=== PATIENT | female | born 1950 | race American Indian/Alaskan Native ===

== ENCOUNTER 2018-11-30 16:31 | Inpatient (IN) | payer MEDICARE ==
[2018-11-30] MEDS ORDERED: CATAPRES PO ONE (17:05)
--- NOTE | 2018-11-30 17:10 | Emergency Department Report ---
HPI - General Chief Complaint: Neck Pain/Injury Time Seen by Provider: 11/30/18 16:54 - HPI HPI: Room 23 The patient is a 68-year-old female presented with a chief complaint of neck shoulder and chest pain. The patient states for the past 2 days she's had intermittent pain in her left neck, left shoulder and left upper extremity as well as substernal chest. Patient states the quality of pain is difficult to describe but today became constant. Patient states she had a slight headache yesterday. Patient denies shortness of breath, nausea/vomiting or diaphoresis. Patient denies cough, recent trauma or fever. The patient states she's been out of her blood pressure medication for the past 3 months. The patient states she's never had a cardiac catheterization Location: [See above] Duration: Since yesterday Quality: Pain Severity: Moderate Modifying factors: [see above] Context: [see above] Mode of transportation: [not driving] ED Past Medical Hx - Past Medical History Previous Medical History?: Yes Hx Hypertension: Yes - Surgical History Past Surgical History?: No - Family History Family history: no significant - Social History Smoking Status: Never Smoker Substance Use Type: None (denies illicit drug use) ED Review of Systems ROS: Stated complaint: NECK/HAND/SHOULDER/PAIN Other details as noted in HPI Constitutional: denies: diaphoresis, fever Eyes: denies: eye pain ENT: denies: throat pain Respiratory: denies: shortness of breath Cardiovascular: chest pain Endocrine: no symptoms reported Gastrointestinal: denies: nausea, vomiting Genitourinary: denies: dysuria Musculoskeletal: myalgia Neurological: headache Physical Exam - Physical Exam Vital Signs: Vital Signs 11/30/18 16:49 Temperature 98.6 F Pulse Rate 69 Respiratory 18 Rate Blood Pressure 229/114 O2 Sat by Pulse 97 Oximetry Physical Exam: GENERAL: The patient is well-developed well-nourished female sitting in chair not appearing to be in acute distress. [] HEENT: Normocephalic. Atraumatic. Extraocular motions are intact. Patient has moist mucous membranes. NECK: Supple. No meningitic signs are noted. Trachea midline CHEST/LUNGS: Clear to auscultation. There is no respiratory distress noted. HEART/CARDIOVASCULAR: Regular. There is no tachycardia. There is no gallop rub or murmur. ABDOMEN: Abdomen is soft, nontender. Patient has normal bowel sounds. There is no abdominal distention. SKIN: There is no rash. There is no edema. There is no diaphoresis. NEURO: The patient is awake, alert, and oriented. The patient is cooperative. The patient has no focal neurologic deficits. The patient has normal speech. Cranial nerves II through XII grossly intact, no drift MUSCULOSKELETAL: There is no evidence of acute injury. ED Course Vital Signs 11/30/18 16:49 Temperature 98.6 F Pulse Rate 69 Respiratory 18 Rate Blood Pressure 229/114 O2 Sat by Pulse 97 Oximetry ED Medical Decision Making - Lab Data Result diagrams: 11/30/18 17:24 11/30/18 17:24 - EKG Data -: EKG Interpreted by Me EKG shows normal: sinus rhythm Rate: normal - EKG Data When compared to previous EKG there are: previous EKG unavailable Interpretation: other (no ischemic changes seen) - Radiology Data Radiology results: report reviewed (CT head), image reviewed (CT head, chest x- ray) interpreted by me: Chest x-ray-no focal infiltrates, [place] [address] Cat Scan Report Signed Patient: RAFA GUZMAN MR#: [id number] : 1950 Acct:[id number] Age/Sex: 68 / F ADM Date: 11/30/18 Loc: ED Attending Dr: Ordering Physician: ANAMIKA MURRAY MD Date of Service: 11/30/18 Procedure(s): CT head/brain wo con Accession Number(s): [id number] cc: ANAMIKA MURRAY MD FINAL REPORT EXAM: CT HEAD/BRAIN WO CON HISTORY: hypertension, headache TECHNIQUE: CT examination of the head without IV contrast PRIORS: None. FINDINGS: Polyp or retention cyst mid left ethmoid sinus. No acute air-fluid level visualized in the included air-filled sinuses. Bone windows demonstrate no acute fracture. There is ventricular and sulcal prominence compatible with global cerebrocortical atrophy. The brain contains no mass, mass effect, hemorrhage, or acute infarct. There is no extra-axial intracranial bleed, brain bleed, or midline shift. IMPRESSION: No acute CVA, intracranial bleed, or brain mass Polyp or retention cyst mid left ethmoid sinus Transcribed By: VIJAYA Dictated By: EBONY TOBAR MD Electronically Authenticated By: EBONY TOBAR MD Signed Date/Time: 11/30/181801 DD/ 00 TD/TT: 11/30/181800 - Differential Diagnosis hypertensive urgency, ICH, ACS, PE Critical care attestation.: If time is entered above; I have spent that time in minutes in the direct care of this critically ill patient, excluding procedure time. ED Disposition Clinical Impression: Hypertensive urgency, Chest pain Disposition: OP ADMIT IP TO THIS HOSP Is pt being admited?: Yes Does the pt Need Aspirin: Yes Condition: Fair Instructions: Chest Pain (ED) Time of Disposition: 18:42 (hospitalist paged (Dr Bernstein))
[2018-11-30 17:35] LABS: Hematocrit 46.2 % (30.3-42.9); Hemoglobin 14.9 gm/dl (10.1-14.3); Mean Corpuscular HGB Conc 32 % (30-34); Mean Corpuscular Volume 87 fl (79-97); Platelet Count 177 K/mm3 (140-440); Red Blood Count 5.32 M/mm3 (3.65-5.03)
[2018-11-30 17:52] LABS: Creatine Kinase MB 2.5 ng/mL (0.0-4.0)
[2018-11-30 17:54] LABS: BUN/Creatinine Ratio 14; Blood Urea Nitrogen 11 mg/dL (7-17); Calcium 9.4 mg/dL (8.4-10.2); Hemolysis Index 11
--- NOTE | 2018-11-30 18:02 | Cat Scan Report ---
FINAL REPORT EXAM: CT HEAD/BRAIN WO CON HISTORY: hypertension, headache TECHNIQUE: CT examination of the head without IV contrast PRIORS: None. FINDINGS: Polyp or retention cyst mid left ethmoid sinus. No acute air-fluid level visualized in the included air-filled sinuses. Bone windows demonstrate no acute fracture. There is ventricular and sulcal prominence compatible with global cerebrocortical atrophy. The brain contains no mass, mass effect, hemorrhage, or acute infarct. There is no extra-axial intracranial bleed, brain bleed, or midline shift. IMPRESSION: No acute CVA, intracranial bleed, or brain mass Polyp or retention cyst mid left ethmoid sinus
[2018-11-30] MEDS ORDERED: ASPIRIN PO ONE (18:43)
[2018-11-30] MEDS ORDERED: ZOFRAN IV ONE (19:01)
[2018-11-30] MEDS ORDERED: SUBLIMAZE IV ONE (19:01)
--- NOTE | 2018-11-30 19:21 | XRay Report ---
FINAL REPORT EXAM: XR CHEST 1V AP HISTORY: chest pain TECHNIQUE: Frontal portable view of the chest Comparison: None FINDINGS: There is no evidence of infiltrate, pneumothorax or pleural fluid collection. The cardiac silhouette is normal size. The thoracic aorta is tortuous. The bony structures are unremarkable. Visualization detail of the thoracic spine is limited. IMPRESSION: 1. No evidence of an acute pulmonary process.
[2018-11-30 19:26] LABS: Bilirubin,Urine NEG (Negative); Blood,Urine NEG (Negative); Color,Urine Straw (Yellow); Protein,Urine <15 mg/dL mg/dL (Negative); Urobilinogen,Urine < 2.0 mg/dL (<2.0); WBC,Urine < 1.0 /HPF (0.0-6.0)
[2018-11-30 21:27] LABS: Basophils % (Manual) 0 % (0.0-1.8); Eosinophils % (Manual) 0 % (0.0-4.3); Total Cells Counted 100
[2018-11-30 21:28] LABS: Anisocytosis 1+; Platelet Estimate Consistent w Auto
[2018-11-30] MEDS ORDERED: ZOFRAN IV PRN (22:32)
[2018-11-30] MEDS ORDERED: SODIUM CHLORIDE FLUSH SYRINGE 10 ML IV PRN (22:32)
--- NOTE | 2018-11-30 22:35 | History and Physical Report ---
History of Present Illness Date of examination: 11/30/18 Date of admission: 11/30/18 18:43 History of present illness: 68-year-old woman with a history of hypertension,diabetes, ncompliant with medications comes emergency room with complaints of chest pain that started 1 week ago.Pain is in the left jaw radiating to the left upper extremity, and left posterior shoulder which she describes a dull pain intermittent every hour, intensity 5/10, relief with pain medication given in the ER. Denies breath, nausea, diaphoresis or palpitation. Has not taken any antihypertensive in the last 3 months Review of systems Constitutional: no weight loss, chills, fever Ears, eyes, nose, mouth and throat: no nasal congestion, no nasal discharge, no sinus pressure, no vision change, no red eye. Neck: No neck pain or rigidity. Cardiovascular: no palpitations Respiratory: no cough, shortness of breath Gastrointestinal: no abdominal pain hematochezia Genitourinary : no frequency , no hematuria Musculoskeletal: no joint swelling or muscle ache Integumentary: no rash, no pruritis Neurological: no parathesias, no numbness, no focal weakness Endocrine: no cold or heat intolerance, no polyuria or polydipsia Hematologic/Lymphatic: no easy bruising, no easy bleeding, no gland swelling Allergic/Immunologic: no urticaria, no angioedema. PAST MEDICAL HISTORY: hypertension PAST SURGICAL HISTORY: None SOCIAL HISTORY: Denies alcohol, tobacco, drugs FAMILY HISTORY: Hypertension Medications and Allergies Allergies Allergy/AdvReac Type Severity Reaction Status Date / Time No Known Allergies Allergy Unverified 11/30/18 16:51 Home Medications Medication Instructions Recorded Confirmed Last Taken Type Lisinopril/Hydrochlorothiazide 1 tab PO DAILY 11/30/18 11/30/18 Unknown History Metformin HCl 1 gm PO BID 11/30/18 11/30/18 Unknown History Exam - Physical Exam Narrative exam: General Apperance: The patient lying in bed, breathing comfortable HEENT: Normocephalic, atraumatic. Pupils equally round and reactive to light, EOMI, no sclericterus or JVD or thyromegaly or nodule. , no carotid bruit, mucous membranes moist, no exudate or erythema Heart: S1-S2, regular is rhythm Lungs: Clear to auscultation bilaterally, breathing comfortable Abdomen: Positive bowel sounds, soft, nontender, nondistended, no organomegaly Extremities: No edema cyanosis clubbing Skin: no rash, nodule, warm and dry Neuro: cranial nerves 2-12 intact, speech is fluent, motor/sensory intact - Constitutional Vitals: Temp Pulse Resp BP Pulse Ox 98.3 F 57 L 18 141/75 100 11/30/18 17:10 11/30/18 19:15 11/30/18 19:16 11/30/18 19:15 11/30/18 19:16 Results - Labs CBC & Chem 7: 11/30/18 17:24 11/30/18 17:24 Labs: Abnormal lab results 11/30/18 11/30/18 11/30/18 Range/Units 17:24 17:24 17:24 RBC 5.32 H (3.65-5.03) M/mm3 Hgb 14.9 H (10.1-14.3) gm/dl Hct 46.2 H (30.3-42.9) % Lymphocytes % (Manual) 42.0 H (13.4-35.0) % D-Dimer 248.59 H (0-234) ng/mlDDU Carbon Dioxide 31 H (22-30) mmol/L Glucose 112 H (65-100) mg/dL Total Creatine Kinase 180 H (30-135) units/L Urine pH (5.0-7.0) 11/30/18 Range/Units 19:00 RBC (3.65-5.03) M/mm3 Hgb (10.1-14.3) gm/dl Hct (30.3-42.9) % Lymphocytes % (Manual) (13.4-35.0) % D-Dimer (0-234) ng/mlDDU Carbon Dioxide (22-30) mmol/L Glucose (65-100) mg/dL Total Creatine Kinase (30-135) units/L Urine pH 8.0 H (5.0-7.0) - Imaging and Cardiology EKG: image reviewed Chest x-ray: report reviewed CT Scan - head: report reviewed Assessment and Plan Assessment Hypertensive urgency, malignant Chest pain most likely secondary to #1 Diabetes Plan Check cardiac enzymes, stress test Start aspirin, IV hydralazine Check CT chest, elevated d-dimer Restart her outpatient medications Check fingersticks and initiate insulin sliding scale DVT prophylaxis
[2018-11-30] MEDS ORDERED: NACL 0.45% 1000 ML 1,000 ML IV SCH (23:00)
[2018-11-30] MEDS ORDERED: APRESOLINE IV PRN (23:56)
[2018-11-30] MEDS ORDERED: D50W (25GM) Syringe IV PRN (23:57)
[2018-12-01] MEDS: MORPHINE IV PRN ×3 (01:38→22:37)
--- NOTE | 2018-12-01 03:05 | Cat Scan Report ---
FINAL REPORT EXAM: CT ANGIO CHEST HISTORY: pe protocol TECHNIQUE: A CT angiogram was performed following the intravenous injection of 100 cc of Omnipaque 3 50. Rotational, sagittal, and coronal MIP reconstructions were reviewed. FINDINGS: There is no evidence of pulmonary embolus or aortic dissection. The thoracic aorta is normal in confi guration. The heart size is normal. Pericardial fluid is not seen. There is no evidence of adenopathy . The lungs are negative for infiltrates or effusions. There is minimal atelectatic changes in the ri ght lower lobe. In the upper abdomen the adrenal glands appear normal. At the thoracic inlet the thyr oid gland appears normal. The skeletal structures are well-maintained. IMPRESSION: No evidence of pulmonary embolus, aortic dissection, or vascular congestion. Minimal atelectatic changes in the right lower lobe. No acute infiltrates or effusions.
[2018-12-01 06:24] LABS: Basophils % (Auto) 0.7 % (0.0-1.8); Eosinophils % (Auto) 0.6 % (0.0-4.3); Hemoglobin 13.2 gm/dl (10.1-14.3); Lymphocytes # (Auto) 1.7 K/mm3 (1.2-5.4); Lymphocytes % (Auto) 36.4 % (13.4-35.0); Mean Corpuscular HGB Conc 32 % (30-34); Mean Corpuscular Volume 88 fl (79-97); Monocytes # (Auto) 0.3 K/mm3 (0.0-0.8); Monocytes % (Auto) 6.4 % (0.0-7.3); Platelet Count 149 K/mm3 (140-440); Red Blood Count 4.79 M/mm3 (3.65-5.03); Red Cell Distribution Width 15.4 % (13.2-15.2)
[2018-12-01 06:42] LABS: BUN/Creatinine Ratio 15; Blood Urea Nitrogen 12 mg/dL (7-17); Calcium 8.9 mg/dL (8.4-10.2); Hemolysis Index 24
[2018-12-01 07:26] LABS: Creatine Kinase MB 1.7 ng/mL (0.0-4.0)
[2018-12-01] MEDS: HumaLOG SUB-Q SCH ×4 (08:18→22:31)
[2018-12-01] MEDS: TYLENOL PO PRN (09:44)
[2018-12-01] MEDS ORDERED: HYDROCHLOROTHIAZIDE PO SCH (10:00)
[2018-12-01] MEDS ORDERED: LISINOPRIL PO SCH (10:00)
[2018-12-01] MEDS ORDERED: LEXISCAN IV ONE ×2 (10:25→10:27)
[2018-12-01] MEDS ORDERED: PNEUMOVAX 23 IM ONE (12:00)
[2018-12-01] MEDS ORDERED: AFLURIA QUAD 2018-2019 SYRINGE IM ONE (12:00)
[2018-12-01] MEDS ORDERED: HCTZ PO SCH ×2 (14:00→15:13)
[2018-12-01] MEDS: BABY ASPIRIN PO SCH (14:15)
[2018-12-01] MEDS: SODIUM CHLORIDE FLUSH SYRINGE 10 ML IV SCH ×2 (14:15→22:32)
[2018-12-01] MEDS ORDERED: ZESTRIL PO SCH ×2 (15:00→15:13)
--- NOTE | 2018-12-01 15:11 | Progress Note ---
Assessment and Plan Assessment and plan: 68-year-old woman with a history of hypertension,diabetes, ncompliant with medications comes emergency room with complaints of chest pain that started 1 week ago.Pain is in the left jaw radiating to the left upper extremity, and left posterior shoulder PAST MEDICAL HISTORY: hypertension Hospital course/plan all AV chayo blockers have been discontinued. Blood pressure medications are being optimized. sp stress test Diagnosis Hypertensive urgency Chest pain, most likely due to hypertensive urgency Bradycardia dvt ppx- lovenox History Interval history: Review of systems Constitutional: No fevers, no malaise, no joint pains CVS: No chest pain, no orthopnea, no dyspnea on exertion, no pedal edema GI: No abdominal pain, no diarrhea, no vomiting, no constipation Respiratory: No shortness of breath, no wheezing, no coughing Hospitalist Physical - Physical exam Narrative exam: General.: Appears well, no distress, nontoxic HEENT: Moist mucous membranes, extraocular muscles intact, no lymphadenopathy Neck: supple Cardiac: S1-S2 heard Lungs: clear to auscultation bilaterally Abdomen: soft , nontender, nondistended, bowel sounds positive Extremities: no edema clubbing or cyanosis Skin: no rash or lesions Neurologic: no gross focal deficits Psych: calm, and cooperative - Constitutional Vitals: Temp Pulse Resp BP Pulse Ox 97.4 F L 57 L 18 182/78 95 12/01/18 12:28 12/01/18 12:28 12/01/18 12:28 12/01/18 12:28 12/01/18 11:52 Results - Labs CBC & Chem 7: 12/01/18 05:51 12/01/18 05:51 Labs: Laboratory Last Values WBC 4.7 K/mm3 (4.5-11.0) 12/01/18 05:51 RBC 4.79 M/mm3 (3.65-5.03) 12/01/18 05:51 Hgb 13.2 gm/dl (10.1-14.3) 12/01/18 05:51 Hct 42.0 % (30.3-42.9) 12/01/18 05:51 MCV 88 fl (79-97) 12/01/18 05:51 MCH 28 pg (28-32) 12/01/18 05:51 MCHC 32 % (30-34) 12/01/18 05:51 RDW 15.4 % (13.2-15.2) H 12/01/18 05:51 Plt Count 149 K/mm3 (140-440) 12/01/18 05:51 Lymph % (Auto) 36.4 % (13.4-35.0) H 12/01/18 05:51 Morgan % (Auto) 6.4 % (0.0-7.3) 12/01/18 05:51 Eos % (Auto) 0.6 % (0.0-4.3) 12/01/18 05:51 Baso % (Auto) 0.7 % (0.0-1.8) 12/01/18 05:51 Lymph # 1.7 K/mm3 (1.2-5.4) 12/01/18 05:51 Morgan # 0.3 K/mm3 (0.0-0.8) 12/01/18 05:51 Eos # 0.0 K/mm3 (0.0-0.4) 12/01/18 05:51 Baso # 0.0 K/mm3 (0.0-0.1) 12/01/18 05:51 Add Manual Diff Complete 11/30/18 17:24 Total Counted 100 11/30/18 17:24 Seg Neutrophils % 55.9 % (40.0-70.0) 12/01/18 05:51 Seg Neuts % (Manual) 52.0 % (40.0-70.0) 11/30/18 17:24 Band Neutrophils % 0 % 11/30/18 17:24 Lymphocytes % (Manual) 42.0 % (13.4-35.0) H 11/30/18 17:24 Reactive Lymphs % (Man) 0 % 11/30/18 17:24 Monocytes % (Manual) 6.0 % (0.0-7.3) 11/30/18 17:24 Eosinophils % (Manual) 0 % (0.0-4.3) 11/30/18 17:24 Basophils % (Manual) 0 % (0.0-1.8) 11/30/18 17:24 Metamyelocytes % 0 % 11/30/18 17:24 Myelocytes % 0 % 11/30/18 17:24 Promyelocytes % 0 % 11/30/18 17:24 Blast Cells % 0 % 11/30/18 17:24 Nucleated RBC % Not Reportable 11/30/18 17:24 Seg Neutrophils # 2.6 K/mm3 (1.8-7.7) 12/01/18 05:51 Seg Neutrophils # Man 2.5 K/mm3 (1.8-7.7) 11/30/18 17:24 Band Neutrophils # 0.0 K/mm3 11/30/18 17:24 Lymphocytes # (Manual) 2.0 K/mm3 (1.2-5.4) 11/30/18 17:24 Abs React Lymphs (Man) 0.0 K/mm3 11/30/18 17:24 Monocytes # (Manual) 0.3 K/mm3 (0.0-0.8) 11/30/18 17:24 Eosinophils # (Manual) 0.0 K/mm3 (0.0-0.4) 11/30/18 17:24 Basophils # (Manual) 0.0 K/mm3 (0.0-0.1) 11/30/18 17:24 Metamyelocytes # 0.0 K/mm3 11/30/18 17:24 Myelocytes # 0.0 K/mm3 11/30/18 17:24 Promyelocytes # 0.0 K/mm3 11/30/18 17:24 Blast Cells # 0.0 K/mm3 11/30/18 17:24 WBC Morphology Not Reportable 11/30/18 17:24 Hypersegmented Neuts Not Reportable 11/30/18 17:24 Hyposegmented Neuts Not Reportable 11/30/18 17:24 Hypogranular Neuts Not Reportable 11/30/18 17:24 Smudge Cells Not Reportable 11/30/18 17:24 Toxic Granulation Not Reportable 11/30/18 17:24 Toxic Vacuolation Not Reportable 11/30/18 17:24 Dohle Bodies Not Reportable 11/30/18 17:24 Pelger-Huet Anomaly Not Reportable 11/30/18 17:24 Radha Rods Not Reportable 11/30/18 17:24 Platelet Estimate Consistent w auto 11/30/18 17:24 Clumped Platelets Not Reportable 11/30/18 17:24 Plt Clumps, EDTA Not Reportable 11/30/18 17:24 Large Platelets Not Reportable 11/30/18 17:24 Giant Platelets Not Reportable 11/30/18 17:24 Platelet Satelliting Not Reportable 11/30/18 17:24 Plt Morphology Comment Not Reportable 11/30/18 17:24 RBC Morphology Not Reportable 11/30/18 17:24 Dimorphic RBCs Not Reportable 11/30/18 17:24 Polychromasia Not Reportable 11/30/18 17:24 Hypochromasia Not Reportable 11/30/18 17:24 Poikilocytosis Not Reportable 11/30/18 17:24 Anisocytosis 1+ 11/30/18 17:24 Microcytosis Not Reportable 11/30/18 17:24 Macrocytosis Not Reportable 11/30/18 17:24 Spherocytes Not Reportable 11/30/18 17:24 Pappenheimer Bodies Not Reportable 11/30/18 17:24 Sickle Cells Not Reportable 11/30/18 17:24 Target Cells Not Reportable 11/30/18 17:24 Tear Drop Cells Not Reportable 11/30/18 17:24 Ovalocytes Not Reportable 11/30/18 17:24 Helmet Cells Not Reportable 11/30/18 17:24 Rey-Truro Bodies Not Reportable 11/30/18 17:24 Kelly Rings Not Reportable 11/30/18 17:24 Angela Cells Not Reportable 11/30/18 17:24 Bite Cells Not Reportable 11/30/18 17:24 Crenated Cell Not Reportable 11/30/18 17:24 Elliptocytes Not Reportable 11/30/18 17:24 Acanthocytes (Spur) Not Reportable 11/30/18 17:24 Rouleaux Not Reportable 11/30/18 17:24 Hemoglobin C Crystals Not Reportable 11/30/18 17:24 Schistocytes Not Reportable 11/30/18 17:24 Malaria parasites Not Reportable 11/30/18 17:24 Javier Bodies Not Reportable 11/30/18 17:24 Hem Pathologist Commnt No 11/30/18 17:24 D-Dimer 248.59 ng/mlDDU (0-234) H 11/30/18 17:24 Sodium 142 mmol/L (137-145) 12/01/18 05:51 Potassium 4.7 mmol/L (3.6-5.0) 12/01/18 05:51 Chloride 104.4 mmol/L (98-107) 12/01/18 05:51 Carbon Dioxide 25 mmol/L (22-30) 12/01/18 05:51 Anion Gap 17 mmol/L 12/01/18 05:51 BUN 12 mg/dL (7-17) 12/01/18 05:51 Creatinine 0.8 mg/dL (0.7-1.2) 12/01/18 05:51 Estimated GFR > 60 ml/min 12/01/18 05:51 BUN/Creatinine Ratio 15 % 12/01/18 05:51 Glucose 101 mg/dL (65-100) H 12/01/18 05:51 POC Glucose 98 (70-105) 12/01/18 06:28 Calcium 8.9 mg/dL (8.4-10.2) 12/01/18 05:51 Total Creatine Kinase 124 units/L (30-135) 12/01/18 05:51 CK-MB (CK-2) 1.7 ng/mL (0.0-4.0) 12/01/18 05:51 CK-MB (CK-2) Rel Index 1.3 (0-4) 12/01/18 05:51 Troponin T < 0.010 ng/mL (0.00-0.029) 12/01/18 05:51 Urine Color Straw (Yellow) 11/30/18 19:00 Urine Turbidity Clear (Clear) 11/30/18 19:00 Urine pH 8.0 (5.0-7.0) H 11/30/18 19:00 Ur Specific [place] 1.008 (1.003-1.030) 11/30/18 19:00 Urine Protein <15 mg/dl mg/dL (Negative) 11/30/18 19:00 Urine Glucose (UA) Neg mg/dL (Negative) 11/30/18 19:00 Urine Ketones Neg mg/dL (Negative) 11/30/18 19:00 Urine Blood Neg (Negative) 11/30/18 19:00 Urine Nitrite Neg (Negative) 11/30/18 19:00 Urine Bilirubin Neg (Negative) 11/30/18 19:00 Urine Urobilinogen < 2.0 mg/dL (<2.0) 11/30/18 19:00 Ur Leukocyte Esterase Neg (Negative) 11/30/18 19:00 Urine WBC (Auto) < 1.0 /HPF (0.0-6.0) 11/30/18 19:00 Urine RBC (Auto) 1.0 /HPF (0.0-6.0) 11/30/18 19:00 U Epithel Cells (Auto) 1.0 /HPF (0-13.0) 11/30/18 19:00
[2018-12-01] MEDS: PROCARDIA XL PO SCH (15:43)
[2018-12-01] MEDS ORDERED: LOVENOX SUB-Q SCH (22:00)
--- NOTE | 2018-12-01 23:20 | Treadmill Report ---
THALLIUM STRESS TEST REPORT LEFT VENTRICLE: Left ventricular chamber size is within normal spread. Perfusion study demonstrates homogeneous uptake of the tracer in all segments, no significant perfusion defects identified. Gated analysis is not available. CONCLUSION: Normal myocardial perfusion study. JOB# [id number] CA/NTS
[2018-12-02] MEDS: MORPHINE IV PRN (05:53)
[2018-12-02] MEDS: TYLENOL PO PRN (10:55)
[2018-12-02] MEDS: BABY ASPIRIN PO SCH (10:56)
[2018-12-02] MEDS: HumaLOG SUB-Q SCH ×2 (10:58→12:42)
[2018-12-02] MEDS: PROCARDIA XL PO SCH (10:58)
[2018-12-02] MEDS: SODIUM CHLORIDE FLUSH SYRINGE 10 ML IV SCH (11:00)
--- NOTE | 2018-12-02 14:02 | Discharge Summary ---
Providers - Providers Date of Admission: 11/30/18 18:43 Attending physician: LIZZ MAYERS MD Primary care physician: KATIUSKA PATTEN Hospitalization Condition: Fair Hospital course: 68-year-old woman who presents with chest pain. ACS was ruled out. She went on to have a stress test that was negative. She had very elevated blood pressure. She stated that she had been on some blood pressure medications, but was hoping that it'll go away with her being less stress. She was counseled on blood pressure medication compliance, she is advised to see her doctor for blood pressure check within 2 weeks of discharge. She was noted to be bradycardic, therefore all AV chayo blockage agents were discontinued. Her blood pressure medications were optimized and she was subsequently discharged. She complained of neck pain radiating down her left arm consistent with cervical radiculopathy, therefore she was given Medrol Dosepak Diagnoses Hypertensive urgency Chest pain due to hypertensive urgency Bradycardia cervical radiculopathy Disposition: TO HOME OR SELFCARE Time spent for discharge: 33 mins Core Measure Documentation - Palliative Care Palliative Care/ Comfort Measures: Not Applicable - Core Measures Any of the following diagnoses?: none Exam - Constitutional Vitals: Temp Pulse Resp BP Pulse Ox 98.0 F 64 20 168/69 97 12/02/18 08:34 12/02/18 08:34 12/02/18 08:34 12/02/18 08:34 12/02/18 10:00 General appearance: Present: no acute distress, well-nourished - EENT Eyes: Present: PERRL ENT: hearing intact, clear oral mucosa - Neck Neck: Present: supple, normal ROM - Respiratory Respiratory effort: normal Respiratory: bilateral: CTA - Cardiovascular Heart Sounds: Present: S1 & S2. Absent: rub, click - Extremities Extremities: pulses symmetrical, No edema Peripheral Pulses: within normal limits - Abdominal General gastrointestinal: Present: soft, non-tender, non-distended, normal bowel sounds Female genitourinary: Present: normal - Integumentary Integumentary: Present: clear, warm, dry - Musculoskeletal Musculoskeletal: gait normal, strength equal bilaterally - Psychiatric Psychiatric: appropriate mood/affect, intact judgment & insight - Neurologic Neurologic: CNII-XII intact, moves all extremities Plan Follow up with: KATIUSKA PATTEN MD [Primary Care Provider] - 7 Days Forms: Work/School Release Form Prescriptions: hydroCHLOROthiazide [HCTZ] 25 mg PO QDAY #30 tablet RX: Lisinopril [Zestril TAB] 40 mg PO QDAY #30 tablet Metformin HCl 1 gm PO BID #60 methylPREDNISolone [Medrol] 4 mg PO DAILY #1 tab.ds.pk RX: NIFEdipine XL [Procardia Xl] 60 mg PO Q12HR #60 tab
[2018-12-04 11:32] VITALS: BP 168/69
== END 2018-12-02 15:54 | disposition home or self-care (01) | DRG 305 ==
LOC: ED 16:31 → 4A 18:43
PROVIDERS: ADMIT Internal Medicine; ATTEND Internal Medicine
PROC: 3E0234Z Introduction of Serum, Toxoid and Vaccine into Muscle, Percutaneous Approach (ICD-10-PCS; principal; 2018-12-01)
DX: I16.0 Hypertensive urgency (principal); R00.1 Bradycardia, unspecified; E11.9 Type 2 diabetes mellitus without complications; M54.12 Radiculopathy, cervical region; Z91.14 Patient's other noncompliance with medication regimen; Z82.49 Family history of ischemic heart disease and other diseases of the circulatory system; Z79.84 Long term (current) use of oral hypoglycemic drugs; Z23 Encounter for immunization
CPT/HCPCS: 36415; 70450; 71045; 71275; 78452; 80048; 81001; 82550; 82553; 82962; 84484; 85007; 85025; 85379; 90686; 90732; 93005; 93010; 93017; 96374; 96375; G0378; A9502; J1650; J2270; J2405; J2785; J3010; J7030; Q9967

== ENCOUNTER 2019-06-14 16:27 | Emergency (ER) | payer MEDICARE, OTHER ==
--- NOTE | 2019-06-14 16:52 | Event Note ---
ED Screening Note Date of service: 06/14/19 Time: 16:49 ED Screening Note: Patient reports abdominal pain since yesterday. PMH DM2, HTN Patient states she was off medication for 3 months and just restarted medication 1 week ago. This initial assessment/diagnostic orders/clinical plan/treatment(s) is/are subject to change based on patients health status, clinical progression and re- assessment by fellow clinical providers in the ED. Further treatment and workup at subsequent clinical providers discretion. Patient/guardian urged not to elope from the ED as their condition may be serious if not clinically assessed and managed. Initial orders include: Labs
[2019-06-14 17:25] LABS: Basophils % (Auto) 0.3 % (0.0-1.8); Eosinophils % (Auto) 0.3 % (0.0-4.3); Hematocrit 44.5 % (30.3-42.9); Hemoglobin 14.4 gm/dl (10.1-14.3); Lymphocytes # (Auto) 1.2 K/mm3 (1.2-5.4); Lymphocytes % (Auto) 18.1 % (13.4-35.0); Mean Corpuscular HGB Conc 32 % (30-34); Mean Corpuscular Volume 87 fl (79-97); Monocytes # (Auto) 0.3 K/mm3 (0.0-0.8); Platelet Count 171 K/mm3 (140-440); Red Blood Count 5.12 M/mm3 (3.65-5.03); Red Cell Distribution Width 15.3 % (13.2-15.2)
[2019-06-14 17:38] LABS: Bilirubin,Urine NEG (Negative); Blood,Urine NEG (Negative); Color,Urine Yellow (Yellow); Mucus,Urine 1+ /HPF
[2019-06-14 17:48] LABS: Alanine Aminotransferase 30 units/L (7-56); Albumin 4.5 g/dL (3.9-5); BUN/Creatinine Ratio 19; Blood Urea Nitrogen 17 mg/dL (7-17); Calcium 9.8 mg/dL (8.4-10.2); Hemolysis Index 17
--- NOTE | 2019-06-14 20:16 | Emergency Department Report ---
ED General Adult HPI - General Chief complaint: Abdominal Pain Stated complaint: HURTING ALL OVER Time Seen by Provider: 06/14/19 16:49 Source: patient Mode of arrival: Ambulatory Limitations: No Limitations - History of Present Illness Initial comments: This is a 69-year-old female well with a history of diabetes and hypertension on medication who presents to ED complaining of some abdominal discomfort that started today after she E some food. Patient states that discomfort is in her upper mid abdomen. Patient states that it feels like she is bloated and has a lot of gas. She denies abdominal pain and says is more of a discomfort than pain. Patient states she just started taking her blood pressure medication and diabetes as she has been off of it for the past 2 months due to insurance issues. Patient states now she is taking and follows up with her primary care doctor Almaz Thornton. She denies nausea vomiting and diarrhea - Related Data Previous Rx's Medication Instructions Recorded Last Taken Type Lisinopril [Zestril TAB] 40 mg PO QDAY #30 tablet 12/02/18 Unknown Rx Metformin HCl 1 gm PO BID #60 12/02/18 Unknown Rx NIFEdipine XL [Procardia Xl] 60 mg PO Q12HR #60 tab 12/02/18 Unknown Rx hydroCHLOROthiazide [HCTZ] 25 mg PO QDAY #30 tablet 12/02/18 Unknown Rx methylPREDNISolone [Medrol] 4 mg PO DAILY #1 tab.ds.pk 12/02/18 Unknown Rx Famotidine [Pepcid] 20 mg PO BID #30 tablet 06/14/19 Unknown Rx Allergies Allergy/AdvReac Type Severity Reaction Status Date / Time No Known Allergies Allergy Unverified 11/30/18 16:51 ED Review of Systems ROS: Stated complaint: HURTING ALL OVER Other details as noted in HPI Comment: All other systems reviewed and negative ED Past Medical Hx - Past Medical History Hx Hypertension: Yes Hx Congestive Heart Failure: No Hx Diabetes: Yes Hx of Cancer: No Hx Asthma: No Hx COPD: No - Social History Smoking Status: Never Smoker Substance Use Type: None - Medications Home Medications: Home Medications Medication Instructions Recorded Confirmed Last Taken Type Lisinopril [Zestril TAB] 40 mg PO QDAY #30 tablet 12/02/18 Unknown Rx Metformin HCl 1 gm PO BID #60 12/02/18 Unknown Rx NIFEdipine XL [Procardia Xl] 60 mg PO Q12HR #60 tab 12/02/18 Unknown Rx hydroCHLOROthiazide [HCTZ] 25 mg PO QDAY #30 tablet 12/02/18 Unknown Rx methylPREDNISolone [Medrol] 4 mg PO DAILY #1 tab.ds.pk 12/02/18 Unknown Rx Famotidine [Pepcid] 20 mg PO BID #30 tablet 06/14/19 Unknown Rx ED Physical Exam - General Limitations: No Limitations General appearance: alert, in no apparent distress - Head Head exam: Present: atraumatic, normocephalic - Eye Eye exam: Present: normal appearance - ENT ENT exam: Present: mucous membranes moist - Neck Neck exam: Present: normal inspection - Respiratory Respiratory exam: Present: normal lung sounds bilaterally. Absent: respiratory distress - Cardiovascular Cardiovascular Exam: Present: regular rate, normal rhythm. Absent: systolic murmur, diastolic murmur, rubs, gallop - GI/Abdominal GI/Abdominal exam: Present: soft, normal bowel sounds. Absent: distended, tenderness, guarding, mass, bruit, pulsatile mass - Extremities Exam Extremities exam: Present: normal inspection - Back Exam Back exam: Present: normal inspection - Neurological Exam Neurological exam: Present: alert, oriented X3 - Psychiatric Psychiatric exam: Present: normal affect, normal mood - Skin Skin exam: Present: warm, dry, intact, normal color. Absent: rash ED Course Vital Signs 06/14/19 16:49 Temperature 97.8 F Pulse Rate 74 Respiratory 18 Rate Blood Pressure 164/70 O2 Sat by Pulse 100 Oximetry ED Medical Decision Making - Lab Data Result diagrams: 06/14/19 17:06 06/14/19 17:06 - Medical Decision Making 69-year-old female presents with possible gastritis. Discussed the patient's family. Pepcid to help settle her stomach discomfort. Urinalysis shows no abnormal findings I also discussed the patient follow up with her primary care physician. I discussed the results with the patient. Patient appears to be in no acute respiratory distress throughout the ED stay. She is sitting comfortably in the ED. There was no tenderness during examination. All labs are within normal limits no signs of leukocytosis or electrolyte imbalance. Critical care attestation.: If time is entered above; I have spent that time in minutes in the direct care of this critically ill patient, excluding procedure time. ED Disposition Clinical Impression: Acute gastritis Disposition: DC-01 TO HOME OR SELFCARE Is pt being admited?: No Does the pt Need Aspirin: No Condition: Stable Instructions: Abdominal Pain (ED), Diet for Ulcers and Gastritis (ED), Gastritis (ED) Additional Instructions: Make sure to follow up with the primary care physician as discussed. Take all your medications as you've been prescribed. If you have any worsening symptoms or develop new symptoms please return to ED immediately. Prescriptions: Famotidine [Pepcid] 20 mg PO BID #30 tablet Referrals: [facility] [Provider Group] - 3-5 Days [facility] [Provider Group] - 3-5 Days Forms: Accompanied Note, Work/School Release Form(ED) Time of Disposition: 20:16
[2019-06-14 20:48] VITALS: BP 174/85
== END 2019-06-14 20:45 | disposition home or self-care (01) ==
LOC: ED 16:27
DX: K29.00 Acute gastritis without bleeding (principal); I10 Essential (primary) hypertension; E11.9 Type 2 diabetes mellitus without complications; Z79.84 Long term (current) use of oral hypoglycemic drugs; Z79.899 Other long term (current) drug therapy
CPT/HCPCS: 36415; 80053; 81001; 83690; 85025